=== PATIENT | female | born 1960 | race Caucasian/White ===

== ENCOUNTER 2016-12-18 13:15 | Emergency (ER) | payer MEDICARE, MEDICAID ==
[2016-12-18] MEDS ORDERED: IOPAMIDOL 300 (61%) 100 ML VIAL IV ONE (13:16)
[2016-12-18 14:26] LABS: PH,URINE 6.5 (5.0-8.0); SPECIFIC GRAVITY 1.015 (1.001-1.030); URINE BILIRUBIN NEGATIVE (NEGATIVE); URINE BLOOD TRACE (NEGATIVE); URINE GLUCOSE (UA) NEGATIVE (NEGATIVE); URINE LEUKOCYTE ESTERASE NEGATIVE (NEGATIVE); URINE NITRITE NEGATIVE (NEGATIVE); URINE PROTEIN NEGATIVE (NEGATIVE); URINE UROBILINOGEN NORMAL (0-1 mg/dl)
[2016-12-18 14:27] LABS: URINE APPEARANCE CLEAR; URINE COLOR YELLOW
[2016-12-18 14:28] LABS: ABSOLUTE NEUTROPHIL COUNT 2.5 K/mm3 (1.8-7.7); BASO % 0.7 % (0.2-1.0); EOS % 0.7 % (0.9-2.9); HEMATOCRIT 41.3 % (37.0-47.0); HEMOGLOBIN 13.6 gm/l (12.0-16.0); IMM NEUT% 0.2 % (0-1); LYMPH # 1.2 (1.0-4.8); LYMPH % 26.7 % (15-45); MEAN CELL VOLUME 89.2 fl (81.0-99.0); MEAN CORPUSCULAR HEMOGLOBIN 29.4 pg (27.0-31.0); MEAN CORPUSCULAR HGB CONC 32.9 g/dl (33.0-37.0); MEAN PLATELET VOLUME 9.1 fl (7.4-10.4); MONO # 0.6 (0.0-0.8); MONO % 13.8 % (4-12); NEUT % 57.9 % (43-75); PLATELET COUNT 230 K/mm3 (130-400); RED CELL DISTRIBUTION WIDTH 14.5 % (11.5-14.5)
[2016-12-18 14:46] LABS: URINE BACTERIA FEW; URINE EPITHELIAL CELLS 0-1 /hpf; URINE WBC 0-1 /hpf
[2016-12-18 14:47] LABS: ALB/GLOB RATIO 1.3 (>1.0); ALBUMIN 4.3 gm/dL (3.5-5.7); CALCIUM 9.4 mg/dL (8.6-10.3)
[2016-12-18] MEDS ORDERED: HYDROMORPHONE HCL 1 MG/ML SYRINGE ONE (14:51)
[2016-12-18] MEDS ORDERED: ONDANSETRON 4 MG/2ML 2 ML VIAL ONE (14:51)
[2016-12-18] MEDS ORDERED: HYDROMORPHONE HCL 0.5 MG/0.5 ML SYRINGE ONE ×2 (15:38→16:11)
--- NOTE | 2016-12-18 15:53 | CT ---
Exam Type: ABD/PELVIS W/ CON Date and Time: 12/18/2016 2:07 PM Clinical information: Left lower quadrant pain Comparison: CT abdomen and pelvis without contrast 05/26/2015 Technique: Contiguous axial 4 mm images were obtained from the lung bases through the pelvis after the uneventful IV administration of 100 cc of [id number]. Sagittal and coronal reformations with high resolution lung algorithm images were also obtained at this time. CT DI: 21.3 DLP 1085.3 FINDINGS: Lung base : 3 mm subpleural nodular density is noted on image 2 within the right middle lobe. Visualized heart:There is no pericardial effusion. LIVER: Diffuse fatty infiltration. Scattered too small to characterize hypodensities are present throughout the liver. BILE DUCTS: Minimal intrahepatic duct dilation. GALLBLADDER: Surgically absent PANCREAS: within normal limits. SPLEEN: Calcification is noted likely relating to history of prior granulomatous disease. ADRENALS: Low-density lesion is present within the right adrenal gland. This was noted on prior study and is unchanged. Left adrenal gland is normal. KIDNEYS: There may be a 1 to 2 mm nonobstructing calculus at the right lower pole as seen on image 51. 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 Stomach and small BOWEL: Normal caliber. Large bowel: Air and stool are noted within the large bowel. Appendix is normal. Surgical staple line is noted at the rectosigmoid region. LYMPH NODES: No enlarged mesenteric lymph nodes. PERITONEUM: no ascites or free air, no fluid collection. VESSELS: within normal limits RETROPERITONEUM: within normal limits. ABDOMINAL WALL: Left lower quadrant hernia is present likely from prior stoma. Hernia neck measures 3.8 cm on axial image 55 and contains loops of large bowel. Correlation with physical exam for incarceration or strangulation would be recommended. No evidence of obstruction. Bladder: Normal BONES: Mild degenerative changes are present. No lytic or sclerotic lesions. IMPRESSION: Left lower quadrant hernia is present containing large bowel loops likely from the patient's prior stoma. No evidence of obstruction is noted at this time. Correlation with exam for incarceration or strangulation would be recommended, as these are clinical diagnoses. Other incidental findings as above. Report was uploaded to the electronic medical record at approximately 1550 hours on 12/18/2016.
--- NOTE | 2016-12-18 17:57 | PDOC36 ---
Provider Note Note: GENERAL SURGERY CONSULT CC: abdominal pain HPI: 55yo F with complex surgical history presents with abdominal pain. She has a history of a sigmoidectomy for T1 adenocarcinoma with subsequent exploratory laparotomy and diverting colostomy for anastamotic leak. She would later have her colostomy taken down and developed a midline incisional hernia. She underwent incisional hernia repair in 2014. She now presents with 1 week of intermittent crampy abdominal pain. The pain involves her whole mid to lower abdomen but seems to be worst on her left side. She has had some nausea and minimal PO intake over the last 3 days. She has had subjective fevers. She has also had loose stools and red stools, although she attributes that to red jello that she ate earlier today. She does state that the majority of her family has been sick for the last 2 months. Of note, the patient states she had a colonoscopy 1 year ago with no evidence of recurrence. The patient denies any recent C/V/CP/SOB, change in bladder fx, constipation, unintentional weight loss, easy bleeding/bruising, or other associated symptoms. REVIEW OF SYSTEMS CONSTITUTIONAL: As per HPI. EARS, NOSE, MOUTH, THROAT: ~No sneezing or runny nose CARDIOVASCULAR: ~As per HPI. RESPIRATORY: ~As per HPI. GASTROINTESTINAL: ~As per HPI. GENITOURINARY: ~As per HPI. NEUROLOGICAL: ~No history of seizures HEMATOLOGIC: ~As per HPI. MUSCULOSKELETAL: ~No change in strength. LYMPHATICS: ~No history of splenectomy. PSYCHIATRIC: ~No change in personality or affect PMH: HTN, HL, depression, fibromyalgia, back pain, prediabetes PSH: Abdominal operations include Sigmoidectomy, Ex-Lap with diverting colostomy , colostomy takedown, incisional hernia repair, lap alan, hysterectomy Meds: Simvastatin, HCTZ, Omeprazole, Venlafaxine, Amitryptaline, Proventil, ProAir All: Celebrex, Morphine SH: -1 PPD smoker, occasional EtOH FH: No FH of cancers Vitals: Afebrile, HR low 100s, BP/RR/SpO2 normal Physical Exam: General/Constitutional: Vitals documented above, comfortable in NAD Psych: A&O x 3, normal judgment and insight. Recent and remote memory intact. Mood and affect normal. Eyes: Pupils equal, no scleral icterus Ears, Nose, Mouth, Throat: gross hearing intact Neck: Supple Heart: RRR, no LE edema Lungs: Equal rise and fall of chest wall, non-labored breathing, no audible wheezes Neuro: Gross sensation intact Abdomen: Soft, obese, ND, mild diffuse TTP greatest in left mid-lower abdomen just lateral to old stoma site. No appreciable mass or defect palpated on exam although limited by body habitus. Labs: Laboratory Results - last 24 hr 12/18/16 12/18/16 14:03 14:10 WBC 4.3 RBC 4.63 Hgb 13.6 Hct 41.3 MCV 89.2 MCH 29.4 MCHC 32.9 L RDW 14.5 Plt Count 230 Neut % (Auto) 57.9 Lymph % (Auto) 26.7 Calvert % (Auto) 13.8 H Baso % (Auto) 0.7 Absolute Neuts (auto) 2.5 Eosinophils % 0.7 L VBG Lactate 0.9 Sodium 136 Potassium 3.4 L Chloride 96 L Carbon Dioxide 29 Anion Gap 14 BUN 13 Creatinine 0.8 Estimated GFR 74 BUN/Creatinine Ratio 16 Glucose 101 H Calcium 9.4 Total Bilirubin 0.2 AST 18 ALT 13 Alkaline Phosphatase 65 Total Protein 7.7 Albumin 4.3 Globulin 3.4 Albumin/Globulin Ratio 1.3 Lipase 21 Urine Color Yellow Urine Appearance Clear Urine pH 6.5 Ur Specific [place] 1.015 Urine Protein Negative Urine Glucose (UA) Negative Urine Ketones Negative Urine Blood Trace Urine Nitrite Negative Urine Bilirubin Negative Urine Urobilinogen Normal Ur Leukocyte Esterase Negative Urine RBC 1-2 Urine WBC 0-1 Ur Epithelial Cells 0-1 Urine Bacteria Few % Immature Granulocyt 0.2 CT A/P (12/18/16): FINDINGS: Lung base : 3 mm subpleural nodular density is noted on image 2 within the right middle lobe. Visualized heart:There is no pericardial effusion. LIVER: Diffuse fatty infiltration. Scattered too small to characterize hypodensities are present throughout the liver. BILE DUCTS: Minimal intrahepatic duct dilation. GALLBLADDER: Surgically absent PANCREAS: within normal limits. SPLEEN: Calcification is noted likely relating to history of prior granulomatous disease. ADRENALS: Low-density lesion is present within the right adrenal gland. This was noted on prior study and is unchanged. Left adrenal gland is normal. KIDNEYS: There may be a 1 to 2 mm nonobstructing calculus at the right lower pole as seen on image 51. 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 Stomach and small BOWEL: Normal caliber. Large bowel: Air and stool are noted within the large bowel. Appendix is normal. Surgical staple line is noted at the rectosigmoid region. LYMPH NODES: No enlarged mesenteric lymph nodes. PERITONEUM: no ascites or free air, no fluid collection. VESSELS: within normal limits RETROPERITONEUM: within normal limits. ABDOMINAL WALL: Left lower quadrant hernia is present likely from prior stoma. Hernia neck measures 3.8 cm on axial image 55 and contains loops of large bowel. Correlation with physical exam for incarceration or strangulation would be recommended. No evidence of obstruction. Bladder: Normal BONES: Mild degenerative changes are present. No lytic or sclerotic lesions. IMPRESSION: Left lower quadrant hernia is present containing large bowel loops likely from the patient's prior stoma. No evidence of obstruction is noted at this time. Correlation with exam for incarceration or strangulation would be recommended, as these are clinical diagnoses. Other incidental findings as above. A/P: 55yo F with complex abdominal surgical history with abdominal pain greatest in the LLQ. Although she has a recurrence of an incisional hernia at her prior colostomy site that now contains bowel, there are no indicators that she has threatened or compromised bowel. Her HR normalized with pain control and IV fluids. Her physical exam is unremarkable but limited by her body habitus. Her WBC, bands, and chemistry are all WNL. Her CT scan shows no fat stranding or inflammatory changes of the involved bowel. I would favor that her symptoms are due to the existence of the hernia vs. a viral/bacterial gastroenteritis. I offered the patient admission, but she would prefer a PO trial in the ER and discharge. I discussed return precautions at length with both the patient and her sister. Lastly, I counseled the patient on the importance of smoking cessation. Monroe Cabrera MD General Surgeon
== END 2016-12-18 18:27 | disposition home or self-care (01) ==
LOC: ED 13:15
DX: R10.9 Unspecified abdominal pain (principal); I10 Essential (primary) hypertension; F17.210 Nicotine dependence, cigarettes, uncomplicated